=== PATIENT | female | born 1975 | race African-American/Black ===

== ENCOUNTER 2018-02-18 10:54 | Inpatient (IN) | payer SELFPAY ==
[~2018-02-18] VITALS: Ht 160 cm; Wt 81.6 kg
[2018-02-18] MEDS ORDERED: MORPHINE SULFATE/PF 1MG/ML 10ML AMP ONE (11:58)
[2018-02-18] MEDS ORDERED: FENTANYL CITRATE/PF 50MCG/ML 2ML VIAL ONE (11:59)
[2018-02-18] MEDS ORDERED: CITRIC ACID/SODIUM CITRATE SOLN 30ML UDC PO SCH (12:00)
[2018-02-18] MEDS ORDERED: DEXT 5%/LR + PITOCIN 20UNITS/L 1,000 ML IV SCH (12:02)
[2018-02-18] MEDS ORDERED: EPHEDRINE SULFATE 50MG/ML VIAL ONE (12:10)
[2018-02-18] MEDS ORDERED: DIPHENHYDRAMINE 50MG/ML VIAL ONE (12:10)
[2018-02-18] MEDS ORDERED: ONDANSETRON HCL 4MG/2ML VIAL ONE (12:10)
[2018-02-18] MEDS ORDERED: OXYTOCIN 10 UNITS/ML 1ML ONE ×2 (12:10→13:56)
[2018-02-18] MEDS ORDERED: METOCLOPRAMIDE HCL 10MG/2ML VIAL ONE (12:11)
[2018-02-18] MEDS ORDERED: GLYCOPYRROLATE 0.2 MG/ML 2ML VIAL ONE (12:11)
[2018-02-18] MEDS ORDERED: NALOXONE HCL 0.4 MG/ML 1ML VIAL IM PRN (12:15)
[2018-02-18 12:25] LABS: BASOPHILS % 0.2 % (0.0-2.0); EOSINOPHILS % 0.1 % (0.0-5.0); HEMATOCRIT. 33.5 % (36.0-48.0); HEMOGLOBIN. 11.1 g/dL (12.0-16.0); LYMPHOCYTES % 25.9 % (20.0-50.0); MEAN CORPUSCULAR HEMOGLOBIN 29.5 pg (28.0-32.0); MEAN CORPUSCULAR VOLUME 89.5 fL (81.0-99.0); MEAN PLATELET VOLUME 9.3 fl (7.4-10.4); MONOCYTES % 8.1 % (2.0-8.0); NEUTROPHILS % 65.7 % (40.0-76.0); PLATELET 258 x1000/uL (130-400); RED BLOOD CELL COUNT 3.75 mill/uL (4.2-5.4); RED CELL DISTRIBUTION WIDTH 15.2 % (11.6-14.6)
[2018-02-18 12:29] LABS: PARTIAL THROMBOPLASTIN TIME 25.7 sec (23.4-31.0); PROTHROMBIN TIME 10.1 sec (9.4-11.6)
[2018-02-18] MEDS ORDERED: NON FORMULARY PATIENT HOME MED EA XX SCH (12:30)
[2018-02-18] MEDS: LACTATED RINGERS 1,000 ML IV SCH ×2 (12:32→12:34)
[2018-02-18] MEDS ORDERED: OXYTOCIN IV SCH (13:00)
[2018-02-18] MEDS ORDERED: LACTATED RINGERS IV SCH (13:00)
[2018-02-18 13:27] LABS: CLARITY URINE CLEAR (CLEAR); COLOR URINE YELLOW (YELLOW); KETONES URINE 1+ (NEGATIVE); LEUKOCYTE ESTERASE URINE NEGATIVE (NEGATIVE); NITRITE URINE NEGATIVE (NEGATIVE); OCCULT BLOOD URINE NEGATIVE (NEGATIVE); PROTEIN URINE NEGATIVE (NEGATIVE); SPECIFIC GRAVITY URINE 1.018 (1.005-1.030); UROBILINOGEN URINE 0.2 E.U./dL (0.2-1.0)
[2018-02-18] MEDS ORDERED: MIDAZOLAM HCL 2 MG/2 ML VIAL ONE (13:29)
[2018-02-18 13:38] LABS: HEPATITIS B SURFACE ANTIGEN NEGATIVE
[2018-02-18 13:40] LABS: RUBELLA IGG > 500.0 IU/mL (4.99-10)
[2018-02-18 13:54] LABS: *AMPHETAMINES SCREEN URINE NEGATIVE (NEGATIVE)
[2018-02-18 13:55] LABS: *BARBITURATES SCREEN URINE NEGATIVE (NEGATIVE); *BENZODIAZEPINES SCREEN URINE NEGATIVE (NEGATIVE); *COCAINE SCREEN URINE NEGATIVE (NEGATIVE); METHADONE URINE SCREEN NEGATIVE (NEGATIVE); OPIATES URINE SCREEN NEGATIVE (NEGATIVE); PHENCYCLIDINE URINE SCREEN NEGATIVE (NEGATIVE)
[2018-02-18 13:56] LABS: CANNABINOID URINE SCREEN NEGATIVE (NEGATIVE)
[2018-02-18] MEDS ORDERED: BUTORPHANOL TARTRATE 2 MG/ML VIAL IV PRN (14:45)
[2018-02-18] MEDS ORDERED: DIPHENHYDRAMINE 50MG/ML VIAL IV PRN (14:45)
[2018-02-18] MEDS ORDERED: NALOXONE HCL 0.4 MG/ML 1ML VIAL IV PRN (14:45)
[2018-02-18] MEDS ORDERED: CARBOPROST TROMETHAMINE 250 MCG/ML AMPUL IM PRN (16:15)
[2018-02-18] MEDS ORDERED: METHYLERGONOVINE MALEATE 0.2 MG/ML IM PRN (16:15)
[2018-02-18] MEDS: METHYLERGONOVINE MALEATE 0.2MG TABLET PO SCH (16:32)
[2018-02-18 17:15] VITALS: BP 123/73
[2018-02-18 17:30] VITALS: BP 127/71
[2018-02-18 18:00] VITALS: BP 134/75
[2018-02-18 18:23] VITALS: BP 122/71
[2018-02-18] MEDS: EFAVIRENZ 600MG TABLET PO SCH (18:36)
[2018-02-18] MEDS: TENOFOVIR 300MG TABLET PO SCH (18:37)
[2018-02-18] MEDS: EMTRICITABINE 200MG CAPSULE PO SCH (18:37)
[2018-02-18 19:40] VITALS: BP 131/75
[2018-02-18 23:50] VITALS: BP 122/65
[2018-02-19] MEDS: METHYLERGONOVINE MALEATE 0.2MG TABLET PO SCH ×5 (00:39→22:19)
[2018-02-19] MEDS ORDERED: DEXT 5%/LR + PITOCIN 20UNITS/L 1,000 ML IV SCH (01:45)
[2018-02-19 04:00] VITALS: BP 113/76
[2018-02-19] MEDS: KETOROLAC 30MG/ML VIAL IV PRN ×2 (07:36→14:19)
[2018-02-19 08:19] LABS: BASOPHILS % 0.5 % (0.0-2.0); EOSINOPHILS % 0.1 % (0.0-5.0); HEMATOCRIT. 35.4 % (36.0-48.0); HEMOGLOBIN. 11.5 g/dL (12.0-16.0); LYMPHOCYTES % 15.5 % (20.0-50.0); MEAN CORPUSCULAR HEMOGLOBIN 29.1 pg (28.0-32.0); MEAN CORPUSCULAR VOLUME 89.6 fL (81.0-99.0); MEAN PLATELET VOLUME 8.9 fl (7.4-10.4); MONOCYTES % 10.6 % (2.0-8.0); NEUTROPHILS % 73.3 % (40.0-76.0); PLATELET 246 x1000/uL (130-400); RED BLOOD CELL COUNT 3.95 mill/uL (4.2-5.4)
[2018-02-19] MEDS: FERROUS SULFATE 325MG TABLET PO SCH ×4 (09:54→17:39)
[2018-02-19 12:00] VITALS: BP 119/68
[2018-02-19] MEDS: BISACODYL 10MG SUPP PR PRN (14:19)
[2018-02-19 16:00] VITALS: BP 118/70
[2018-02-19] MEDS: EMTRICITABINE 200MG CAPSULE PO SCH (18:21)
[2018-02-19] MEDS: EFAVIRENZ 600MG TABLET PO SCH (18:21)
[2018-02-19] MEDS: TENOFOVIR 300MG TABLET PO SCH (18:22)
[2018-02-19] MEDS: HYDROCODONE/ACETAMINOPHEN 5/325MG TABLET PO PRN (20:35)
[2018-02-19 22:00] VITALS: BP 135/82
[2018-02-20] MEDS: METHYLERGONOVINE MALEATE 0.2MG TABLET PO SCH ×3 (04:03→16:06)
[2018-02-20 04:15] VITALS: BP 121/78
[2018-02-20] MEDS: HYDROCODONE/ACETAMINOPHEN 5/325MG TABLET PO PRN ×2 (07:36→14:07)
[2018-02-20 07:50] VITALS: BP 126/82
[2018-02-20 12:00] VITALS: BP 123/76
[2018-02-20] MEDS: FERROUS SULFATE 325MG TABLET PO SCH ×3 (13:21→17:55)
[2018-02-20 16:22] VITALS: BP 126/81
[2018-02-20] MEDS: BISACODYL 10MG SUPP PR PRN (16:30)
[2018-02-20 19:15] VITALS: BP 121/75
[2018-02-20] MEDS ORDERED: TENOFOVIR 300MG TABLET PO SCH (21:00)
[2018-02-20] MEDS ORDERED: EFAVIRENZ 600MG TABLET PO SCH (21:00)
[2018-02-20] MEDS ORDERED: EMTRICITABINE 200MG CAPSULE PO SCH (21:00)
[2018-02-20 21:10] VITALS: BP 126/73
[2018-02-21] VITALS: BP 126/73
[2018-02-21 04:35] VITALS: BP 130/79
[2018-02-21 08:00] VITALS: BP 126/73
== END 2018-02-21 11:00 | disposition home or self-care (01) | DRG 540 ==
LOC: OBSVTOIN 10:54 → L&D 10:54 → 7EST PP/OB 19:09
PROVIDERS: ADMIT Obstetrics & Gynecology Obstetrics; ATTEND Obstetrics & Gynecology Obstetrics
PROC: 10D00Z1 Extraction of Products of Conception, Low, Open Approach (ICD-10-PCS; 2018-02-18)
PROC: 0UCC0ZZ Extirpation of Matter from Cervix, Open Approach (ICD-10-PCS; principal; 2018-02-18 12:43)
DX: O30.043 Twin pregnancy, dichorionic/diamniotic, third trimester (principal); O36.5930 Maternal care for other known or suspected poor fetal growth, third trimester, not applicable or unspecified; O32.1XX0 Maternal care for breech presentation, not applicable or unspecified; O43.219 Placenta accreta, unspecified trimester; O34.211 Maternal care for low transverse scar from previous cesarean delivery; Z3A.33 33 weeks gestation of pregnancy; Z37.2 Twins, both liveborn
CPT/HCPCS: 36415; 80305; 81003; 85025; 85610; 85730; 86592; 86703; 86762; 86850; 86900; 86920; 87186; 87340; 88307; G0378; J1200; J1885; J2210; J2250; J2274; J2405; J2590; J2765; J3010; J3490; J7120; A4315